=== PATIENT | male | born 1965 | race Native Hawaiian/Other Pacific Islander ===

== ENCOUNTER 2018-10-07 07:27 | Day surgery (SDC) | payer BC, MEDICARE ==
[~2018-10-07 07:27] MED LIST: ALPRAZolam 0.25 MG TAB PO PRN; ALPRAZolam 0.5 MG TAB PO PRN; ASPIRIN 325 MG TAB PO STA; ATORVASTATIN 80 MG TAB PO STA; NITROGLYCERIN SL TABS 0.4 MG TAB SUBLINGUAL PRN; SODIUM CHLORIDE 0.9% 1,000 ML in EMPTY BAG 1 BAG IV ONE
[2018-10-07 07:59] LABS: Glucose,Whole Blood 184 mg/dL (75-99)
[2018-10-07 08:18] LABS: African American GFR (CKD) >90 (>60 ml/min/1.73 sqM); Anion Gap 9 mmol/L; Blood Urea Nitrogen 16 mg/dL (9-20); Calcium 9.9 mg/dL (8.4-10.2); Carbon Dioxide 25 mmol/L (22-30); Chloride 102 mmol/L (98-107); Glucose 186 mg/dL (74-99); Sodium 136 mmol/L (137-145)
[2018-10-07 08:29] LABS: Potassium 5.4 mmol/L (3.5-5.1)
[2018-10-07] MEDS ORDERED: LIDOCAINE 1% INJ 10MG/ML (20 ML MDV) ONE (08:32)
[2018-10-07] MEDS ORDERED: HEPARIN SODIUM 1,000 UN/ML (10ML VL) ONE (08:32)
[2018-10-07] MEDS ORDERED: VERAPAMIL 2.5 MG/ML 2 ML AMP ONE (08:32)
[2018-10-07] MEDS: MIDAZOLAM (PF) 2 MG/2 ML VIAL IV ONE ×2 (08:40→08:53)
[2018-10-07] MEDS ORDERED: LIDOCAINE 1% INJ 10MG/ML (20 ML MDV) SQ ONE (08:43)
[2018-10-07] MEDS: VERAPAMIL SYRINGE (5 MG/10 ML) INTRAARTER ONE ×2 (08:48→10:41)
[2018-10-07] MEDS ORDERED: HEPARIN SODIUM 1,000 UN/ML (10ML VL) IV ONE (08:50)
[2018-10-07] MEDS ORDERED: IOPAMIDOL-370 125ML BTL INJ ONE (09:31)
[2018-10-07] MEDS: NITROGLYCERIN 1000MCG/10ML SYRINGE INTRACORON ONE ×2 (10:34→10:39)
[2018-10-07] MEDS ORDERED: CLOPIDOGREL 75 MG TAB ONE (10:37)
[2018-10-07] MEDS ORDERED: CLOPIDOGREL 75 MG TAB PO ONE (10:39)
[2018-10-07] MEDS ORDERED: IOPAMIDOL-370 100ML BTL INJ ONE (10:40)
[2018-10-07] MEDS ORDERED: NITROGLYCERIN SL TABS 0.4 MG TAB SUBLINGUAL PRN ×2 (11:06→11:07)
[2018-10-07] MEDS ORDERED: INSULIN LISPRO 35 UNIT SQ PRN (11:06)
[2018-10-07] MEDS ORDERED: RX INFO: IV CONTRAST WAS GIVEN 1 EACH MISC MISCELLANE PRN (11:07)
[2018-10-07] MEDS ORDERED: ATROPINE SULFATE 0.1 MG/ML 10ML SYRINGE IV PRN (11:07)
[2018-10-07] MEDS ORDERED: ZOLPIDEM 5 MG TAB PO PRN (11:07)
[2018-10-07] MEDS ORDERED: MAG HYDROX/AL HYDROX/SIMETH 30 ML CUP PO PRN (11:07)
[2018-10-07] MEDS ORDERED: SODIUM CHLORIDE 0.9% 1,000 ML IV SCH (11:15)
--- NOTE | 2018-10-07 12:41 | CC ---
CARDIAC CATHETERIZATION REPORT CARDIAC CATHETERIZATION AND PERCUTANEOUS CORONARY INTERVENTION: DATE OF SERVICE: October 07, 2018 PERFORMING PHYSICIAN: Lorenzo Oviedo MD, final canoe inspector. PROCEDURE PERFORMED: 1. Selective right and left coronary angiogram. 2. Left heart catheterization. 3. An atherectomy of the left circumflex coronary artery using the orbital atherectomy device from [employer]. 4. Successful balloon angioplasty and stenting of the second obtuse marginal branch of left circumflex using 3.5 x 15 mm Xience ERVIN with excellent angiographic results and reduction of stenosis from 100% to 0%. INDICATION: This is a pleasant 53-year-old gentleman with history of coronary artery disease and prior stenting of the left anterior descending artery who was experiencing symptoms of chest discomfort concerning for unstable angina. Because of that, a heart catheterization was advised. APPROACH: Right radial artery. COMPLICATION: None. LEVEL OF SEDATION: Moderate with sedation length of 123 minutes. PROCEDURE DESCRIPTION: After obtaining an informed consent, the patient was brought to the cardiac cleaning laborer. The right radial artery was cannulated using micropuncture technique. The micropuncture wire passed easily then I placed a 6-Somali sheath in the right radial artery. After that I did selective right and left coronary angiogram using JR4 and JL3.5 catheters. Left heart catheterization was performed using 6-Somali pigtail catheter. After that I did intervene on the left circumflex coronary artery. Please see a separate paragraph for that. SELECTIVE CORONARY ANGIOGRAM: 1. The right coronary artery is a large caliber vessel. It is a dominant vessel. The RCA has mild disease in the midportion only. Distally, it bifurcates into PDA and PLV branches both appeared to have mild disease only. 2. The left main is angiographically normal. It bifurcates into left circumflex and left anterior descending artery. 3. The left circumflex is a large caliber vessel. It is a nondominant vessel. The left circumflex in the proximal portion appeared to be angiographically normal and gives rise into first OM branch which appeared to be angiographically normal. The left circumflex after that is 100% occluded by the takeoff of the second obtuse marginal branch. 4. The LAD: The LAD proximally appeared to be stented with mild to moderate in-stent restenosis. The mid LAD has mild disease only and the LAD distally appeared to be angiographically normal. The LAD gives rise into into 2 small diagonal branches and they appeared to be angiographically normal. HEMODYNAMICS: The left ventricular end-diastolic pressure was about 10 mmHg without significant gradient across the aortic valve. PCI OF THE LEFT CIRCUMFLEX: Anticoagulation was initiated using heparin. I gave the patient 10,000 units of heparin at the beginning of the procedure with continuous ACT monitoring throughout the procedure. After that, I did engage the left circumflex using JL3 guide. I did attempt crossing the OM using initially a Whisper wire, but I was unable to then I tried to Choice PT wire and I was unable to finally I was able to cross the OM using Fielder XT wire with the backup support of the Corsair catheter. Subsequently I tried to balloon the OM using initially 2.0 x 12 mm balloon but the balloon will not cross that OM. Subsequently I tried 1.5 mm balloon and the balloon will not cross. Then I tried 1.2 mm [id number] balloon and the balloon will not cross. At that point, I decided to do atherectomy of the OM. I did attempt changing my wire which was a Fielder XT wire into ViperWire using the Teleport catheter, but the catheter will not cross that OM by the lesion, but finally I was able to cross using the Corsair catheter and I did place the ViperWire there. I did atherectomy of OM2 using the CSI device with 220 seconds runs under low speed. After that I did balloon angioplasty using 2.0 x 12 mm balloon before I deployed 3.5 x 15 mm Xience ERVIN where the stent was positioned under fluoroscopy guidance and deployed under 16 atmospheres for 20 seconds. The following angiogram showed excellent results with reduction of stenosis from 100% to 0%. The procedure was completed without any complication. CONCLUSION: 1. Mild disease involving the right coronary artery. 2. Mild to moderate in-stent restenosis of the LAD stent proximally. 3. Chronic total occlusion of the OM2 of the left circumflex which is a large obtuse marginal branch. 4. Successful atherectomy, balloon angioplasty, and stenting of OM2 using 3.5 x 15 mm Xience ERVIN with reduction of stenosis from 100% to 0%. POSTPROCEDURE MANAGEMENT: 1. Dual antiplatelet therapy. 2. Risk factors modifications. 3. Smoking cessation. 4. Follow up with the patient. MMODL / IJN: [id number] /
--- NOTE | 2018-10-07 12:46 | LTR ---
October 07, 2018 Re: Mazin Gibson Dear Dr. Dent: Mr. Mazin Gibson underwent a heart catheterization and was found to have chronic total occlusion of the left circumflex which was opened and stented with good angiographic results and without any complication. I want to thank you for allowing me to participate in his care and please do not hesitate to call if you have any questions or concerns. Sincerely, MD BANG Alcazar / SHALONDA: [id number] /
[2018-10-07 16:53] LABS: Glucose,Whole Blood 158 mg/dL (75-99)
[2018-10-07] MEDS: CARVEDILOL 6.25 MG TAB PO SCH (17:10)
[2018-10-07] MEDS ORDERED: INSULIN ASPART (NovoLOG) 100 UNIT/ML VIAL SQ PRN (18:57)
[2018-10-07] MEDS ORDERED: ATORVASTATIN 40 MG TAB PO SCH (21:00)
[2018-10-07] MEDS ORDERED: INSULIN DETEMIR (LEVEMIR) 100 UNIT/ML SYR SQ SCH (21:00)
[2018-10-07] MEDS ORDERED: MAGNESIUM OXIDE 400 MG TAB PO SCH (21:00)
[2018-10-07 21:25] LABS: Glucose,Whole Blood 251 mg/dL (75-99)
[2018-10-07] MEDS: levETIRAcetam 500 MG TAB PO SCH (21:29)
[2018-10-08 06:23] LABS: Glucose,Whole Blood 108 mg/dL (75-99)
[2018-10-08] MEDS ORDERED: LEVOTHYROXINE 100 MCG TAB PO SCH (06:30)
[2018-10-08] MEDS ORDERED: LEVOTHYROXINE 25 MCG TAB PO SCH (06:30)
[2018-10-08] MEDS: CARVEDILOL 6.25 MG TAB PO SCH (06:46)
[2018-10-08 07:24] LABS: Basophils # (A) 0.1 k/uL (0-0.2); Basophils % (A) 1 %; Eosinophils # (A) 0.2 k/uL (0-0.7); Eosinophils % (A) 2 %; HCT 40.6 % (39.0-53.0); HGB 13.7 gm/dL (13.0-17.5); Lymphocytes % (A) 30 %; MCH 29.3 pg (25.0-35.0); MCHC 33.7 g/dL (31.0-37.0); MCV 86.9 fL (80.0-100.0); Mean Platelet Volume 7.5; Monocytes # (A) 0.6 k/uL (0-1.0); Monocytes % (A) 6 %; Neutrophils # (A) 6.1 k/uL (1.3-7.7); Neutrophils % (A) 61 %; Platelet Count 230 k/uL (150-450); RBC 4.67 m/uL (4.30-5.90)
[2018-10-08 07:35] LABS: African American GFR (CKD) >90 (>60 ml/min/1.73 sqM); Anion Gap 7 mmol/L; Blood Urea Nitrogen 15 mg/dL (9-20); Calcium 10.1 mg/dL (8.4-10.2); Carbon Dioxide 31 mmol/L (22-30); Chloride 101 mmol/L (98-107); Glucose 99 mg/dL (74-99); Potassium 4.5 mmol/L (3.5-5.1); Sodium 139 mmol/L (137-145)
[2018-10-08 08:33] VITALS: BP 125/67; PULSE 76; RESP 16; TEMP 98
--- NOTE | 2018-10-08 08:33 | DS ---
DISCHARGE SUMMARY DATE OF ADMISSION: 10/07/2018 DATE OF DISCHARGE: 10/08/2018 BRIEF HISTORY: This is a 53-year-old gentleman who underwent yesterday a heart catheterization associated with successful balloon angioplasty and stenting of the left circumflex with good angiographic results and without any complication. The procedure was performed from the right radial approach. Excellent angiographic results were obtained by the end. On followup with him today, he is doing good and he is asymptomatic. He is going to be discharged home on dual antiplatelet therapy and I will follow up with the patient next week in the office. MMODL / IJN: [id number] /
[2018-10-08] MEDS: levETIRAcetam 500 MG TAB PO SCH (08:35)
[2018-10-08] MEDS ORDERED: ASPIRIN 325 MG TAB PO SCH (09:00)
[2018-10-08] MEDS ORDERED: VENLAFAXINE HCL ER 150 MG CAP PO SCH (09:00)
[2018-10-08] MEDS ORDERED: LISINOPRIL 2.5 MG TAB PO SCH (09:00)
[2018-10-08] MEDS ORDERED: CLOPIDOGREL 75 MG TAB PO SCH (09:00)
[2018-10-08 10:15] VITALS: BMI 29.0
== END 2018-10-08 11:06 | disposition home or self-care (01) ==
LOC: CATHCVL 07:27 → 3SCARD 10:44 → CATHCVL 10-08 11:06
PROVIDERS: ATTEND Internal Medicine Interventional Cardiology
DX: I25.10 Atherosclerotic heart disease of native coronary artery without angina pectoris (principal); I25.82 Chronic total occlusion of coronary artery; T82.855A Stenosis of coronary artery stent, initial encounter; I25.5 Ischemic cardiomyopathy; I10 Essential (primary) hypertension; E11.9 Type 2 diabetes mellitus without complications; Y71.2 Prosthetic and other implants, materials and accessory cardiovascular devices associated with adverse incidents; E78.5 Hyperlipidemia, unspecified; F17.210 Nicotine dependence, cigarettes, uncomplicated; Z71.6 Tobacco abuse counseling; Z79.82 Long term (current) use of aspirin; Z79.890 Hormone replacement therapy; Z79.4 Long term (current) use of insulin; Z79.899 Other long term (current) drug therapy; Z79.02 Long term (current) use of antithrombotics/antiplatelets; Z95.810 Presence of automatic (implantable) cardiac defibrillator
CPT/HCPCS: 93458; 85347; 80048 ×2; 85025; C9602; C1769 ×7; C1887 ×4; C1725 ×3; C1874; C1894; J2001; J1644; Q9967 ×2; J2250

== ENCOUNTER → 2022-01-05 | Outpatient (CLI) | payer MEDICARE, BC ==
--- NOTE | 2022-01-05 21:28 | CT ---
EXAMINATION TYPE: CT brain wo con DATE OF EXAM: 01/05/2022 COMPARISON: CT brain 11/30/2013 HISTORY: Memory loss CT DLP: 1144.70 mGycm Automated exposure control for dose reduction was used. Helical imaging through the brain FINDINGS: Cortical atrophy is present. Probable lacunar infarct present involving the anterior limb of the inte rnal capsule on the right and caudate has developed in the interval. There are cerebral vascular calc ifications present. No hemorrhage or hydrocephalus. Inflammatory changes present within the right max illary sinus, ethmoid air cells. Mild cortical atrophy is present. Some patchy white matter low-atte nuation is present. IMPRESSION: CHRONIC SMALL VESSEL ISCHEMIC CHANGES. MILD SINUS DISEASE.
== END | disposition home or self-care (01) ==
LOC: RADCTMAIN 06:59
PROVIDERS: ATTEND Internal Medicine
DX: R41.3 Other amnesia (principal)
CPT/HCPCS: 70450

== ENCOUNTER → 2022-02-05 | Outpatient (CLI) | payer BC, MEDICARE ==
[2022-02-05 15:51] LABS: African American GFR (CKD) >90 (>60 ml/min/1.73 sqM); Blood Urea Nitrogen 18 mg/dL (9-20); Non-African American GFR(CKD) >90 (>60 ml/min/1.73 sqM)
--- NOTE | 2022-02-06 09:22 | CT ---
EXAMINATION TYPE: CT angio head neck CT DLP: 597.9 mGycm, Automated exposure control for dose reduction was used. DATE OF EXAM: 02/05/2022 4:48 PM COMPARISON: CT brain wo 01/05/2022.. CLINICAL INDICATION:Male, 56 years old with history of G44.1, Headaches TECHNIQUE: Axially acquired helical CT angiogram of the head and neck was obtained with contrast. Axi al images are supplemented with 3D reconstructions which [facility] NASCET criteria used. Contrast used:65cc mL of Isovue 370 with IV Contrast, Oral contrast used: None. FINDINGS: CTA HEAD: No evidence of acute intracranial hemorrhage, mass effect, or midline shift. The ventricles, sulci, a nd cisterns are unremarkable. The visualized portions of the internal carotid arteries, middle cerebral arteries, anterior cerebral arteries, and posterior cerebral arteries are patent. The basilar and vertebral arteries are patent. CTA NECK: Right Carotid System: The common carotid artery and external carotid artery are patent. The carotid bifurcation demonstrate s no evidence of hemodynamically significant stenosis. The remaining portions of the internal carotid artery demonstrate normal size without significant narrowing. Left Carotid System: The common carotid artery and external carotid artery are patent. The carotid bifurcation demonstrate s no evidence of hemodynamically significant stenosis. The remaining portions of the internal carotid artery demonstrate normal size without significant narrowing. Vertebral arteries are patent without evidence hemodynamically significant stenosis. There is a domin ant left vertebral artery. There is a three-vessel aortic arch. The origins of the great vessels are patent. No evidence of hemo dynamically significant stenosis. Left chest wall. Conduction device with leads terminating out of the [id number] on the inferior as pect. Paraseptal and centrilobular emphysema changes are seen in the lung apices. Secretions are seen within the trachea. IMPRESSION: 1. No evidence of dissection of the cervical internal carotid arteries or vertebral arteries or any e vidence of significant stenosis at the carotid bifurcations. 2. No evidence of intracranial high-grade stenosis or intracranial aneurysm.
== END | disposition home or self-care (01) ==
LOC: RADCTMAIN 14:43
PROVIDERS: ATTEND Internal Medicine
DX: G44.1 Vascular headache, not elsewhere classified (principal)
CPT/HCPCS: 82565; 84520; 70496; 70498; 36415; Q9967

== ENCOUNTER → 2022-08-14 | Outpatient (CLI) | payer MEDICARE ==
--- NOTE | 2022-08-15 08:10 | CTL ---
EXAMINATION TYPE: CT Low Dose Lung DATE OF EXAM ORDERED: 08/14/2022 COMPARISON: None HISTORY: . Low Dose CT Lung Screening CT DLP: [address] CTDI: 3.50 mGy IV CONTRAST USED: None. SCREENING VISIT: First visit COMPARISON: None. TECHNIQUE: Low dose computed tomography scan was performed through the chest at 1 millimeter thick se ctions and reconstructed images in the coronal plane at [address] DIAGNOSTIC QUALITY: Satisfactory FINDINGS: LUNG NODULES: Not presentLeft lung: no nodules identified.Right lung: no nodules identified. LUNGS: COPD: Severity: Mild Fibrosis: Severity:None Lymph nodes: None Other findings: None RIGHT PLEURAL SPACE: Effusion: None Calcification: None Thickening: None Pneumothorax: None LEFT PLEURAL SPACE: Effusion: None Calcification: None Thickening: None Pneumothorax: None HEART: Heart Size: Mildly enlarged Coronary calcification: Mild Pericardial effusion: None OTHER FINDINGS: Upper abdomen: No significant abnormality Bony thorax: Degenerative changes Supraclavicular region: No significant abnormalityOther: No significant abnormalityI IMPRESSION: Mild upper lobe emphysematous change. No concerning nodule is present. FOLLOW UP CT CHEST RECOMMENDATION: Follow-up screening in one year CT LUNG RAD: LUNG RAD CATEGORY 1 negative
== END | disposition home or self-care (01) ==
LOC: RADCTMAIN 14:54
PROVIDERS: ATTEND Internal Medicine
DX: Z12.2 Encounter for screening for malignant neoplasm of respiratory organs (principal); J43.9 Emphysema, unspecified; F17.210 Nicotine dependence, cigarettes, uncomplicated
CPT/HCPCS: 71271

== ENCOUNTER → 2023-05-13 | Outpatient (CLI) | payer BC, MEDICARE ==
--- NOTE | 2023-05-14 12:14 | US ---
EXAMINATION TYPE: US thyroid st tissue head/neck DATE OF EXAM: 05/13/2023 COMPARISON: US 2013 CLINICAL INDICATION: Male, 58 years old with history of E04.8 OTHER SPECIFIED NONTOXIC GOITER; Goiter . Patient is on synthroid. GLAND SIZE: Right Lobe: 7.0 x 3.3 x 4.1 cm Overall Parenchyma: Very heterogeneous. Left Lobe: 5.8 x 1.9 x 2.9 cm Overall Parenchyma: Very heterogeneous. Isthmus Thickness: 1.36 cm NODULES RIGHT: # of nodules measured on right: No obvious nodules seen, however gland is very lobulated and heterogeneous. LEFT: # of nodules measured on left: No obvious nodules seen, however gland is very lobulated and heterogeneous. ISTHMUS: # of nodules measured in the isthmus: 0 Bilateral neck scanned, no evidence of lymphadenopathy. IMPRESSION: Severely heterogeneous and lobulated thyroid gland redemonstrated. Consider diffuse goiter. No distin ct nodules are seen.
== END | disposition home or self-care (01) ==
LOC: RADUSWWP 15:46
PROVIDERS: ATTEND Internal Medicine
DX: E07.89 Other specified disorders of thyroid (principal); E04.8 Other specified nontoxic goiter
CPT/HCPCS: 76536

== ENCOUNTER → 2023-09-09 | Outpatient (CLI) | payer MEDICARE ==
--- NOTE | 2023-09-10 08:33 | XR ---
EXAMINATION TYPE: XR shoulder complete RT DATE OF EXAM: 09/09/2023 4:49 PM CLINICAL INDICATION:Male, 58 years old with history of M25.511 ACUTE PAIN OF RIGHT SHOULDER; [facility] COMPARISON: CT 09/09/2023 TECHNIQUE: XR shoulder complete RT; examined in AP, internally rotated and scapular Y projections. FINDINGS: No evidence of acute osseous pathology, joint dislocation, or soft tissue swelling. The remaining po rtions of the visualized chest are unremarkable. Mild degeneration changes of the acromion and dista l clavicle. Lucent area in the proximal right humerus near the greater tubercle with thin rim of scle rosis measuring 18 x 11 mm. This correlates with degeneration changes on CT imaging likely subchondra l cystic change. IMPRESSION: 1. No acute osseous pathology. 2. Mild shoulder osteoarthrosis. 3. Nonaggressive lytic lesion within the proximal right humerus.
--- NOTE | 2023-09-13 22:40 | CTL ---
EXAMINATION TYPE: CT Low Dose Lung DATE OF EXAM ORDERED: 09/09/2023 HISTORY: Current smoker. Lung cancer screening CT DLP: 136.[address] CTDI: 3.5 mGy Automated exposure control for dose reduction was used. SCREENING VISIT: Subsequent COMPARISON: 08/14/2022 TECHNIQUE: Low dose computed tomography scan was performed through the chest at 1 mm thick sections a nd reconstructed images in the coronal plane at [address] DIAGNOSTIC QUALITY: Satisfactory FINDINGS: LUNG NODULES: None. LUNGS: COPD: Severity: None Fibrosis: Severity: Mild Lymph nodes: No enlarged lymphadenopathy. Shoddy lymphadenopathies within the mediastinum. Other findings: None RIGHT PLEURAL SPACE: Effusion: None Calcification: None Thickening: None Pneumothorax: None LEFT PLEURAL SPACE: Effusion: None Calcification: None Thickening: None Pneumothorax: None HEART: Other: Ascending thoracic aorta at the level the main pulmonary artery measures 3.4 cm. The main pul monary artery at the bifurcation measures 3.1 cm. Heart Size: Normal Coronary calcification: Moderate to severe Pericardial effusion: None OTHER FINDINGS: Upper abdomen: Cholelithiasis Bony thorax: Normal Supraclavicular region: Normal IMPRESSION: 1. No suspicious change to suggest primary or metastatic neoplasm. FOLLOW UP CT CHEST RECOMMENDATION: Follow-up low-dose CT chest one year CT LUNG RAD: Lung-Rad 1 Negative
== END | disposition home or self-care (01) ==
LOC: RADCTMAIN 16:04
PROVIDERS: ATTEND Internal Medicine
DX: Z12.2 Encounter for screening for malignant neoplasm of respiratory organs (principal); M19.011 Primary osteoarthritis, right shoulder; F17.210 Nicotine dependence, cigarettes, uncomplicated
CPT/HCPCS: 71271